=== PATIENT | female | born 1990 | race Caucasian/White ===

== ENCOUNTER → 2017-06-20 | Outpatient (CLI) | payer BC ==
[~2017-06-20] MED LIST: AMPH30CA3 PO; BCPILLS PO; ECHI1CAP PO; MTR/400 PO; MULT-506 PO
== END | disposition home or self-care (01) ==
LOC: C.PAPS 09:39
PROVIDERS: ATTEND Obstetrics & Gynecology
DX: Z01.419 Encounter for gynecological examination (general) (routine) without abnormal findings (principal); R87.610 Atypical squamous cells of undetermined significance on cytologic smear of cervix (ASC-US)

== ENCOUNTER → 2017-11-22 | Outpatient (CLI) | payer OTHER | END | disposition home or self-care (01) | LOC: C.PATHSPEC 14:13 | PROVIDERS: ATTEND Obstetrics & Gynecology | DX: R87.610 Atypical squamous cells of undetermined significance on cytologic smear of cervix (ASC-US) (principal) ==

== ENCOUNTER 2019-04-19 05:20 | Inpatient (IN) ==
--- OUTSIDE RECORDS SUMMARY | 2019-04-19 05:24 | External Medical Summary | Continuity of Care Document ---
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) Low grade squamous intraepithelial lesio n (LGSIL) on cervical Pap smear (795.03) (R87.612) Encounter for routine gynecological exam ination with Papanicolaou smear of cervix (V72.31) (Z01.419) Increased urinary frequency (788.41) (R35.0) Allergies and Adverse Reactions No Known Drug Allergies (Allergy) Medications Multiple Vitamin TABS Refills: 0 Turmeric CAPS Refills: 0 Fish Oil CAPS Refills: 0 Procedures History of myringotomy with tube placement Status: Completed History of dilation and curettage Status : Completed Immunizations Immunizations not documented Social History - Smoking Status Never smoker Plan of Treatment Planned Observations Planned Goals not documented Results No Known Results Results not documented Encounters Appointment; [facility] SC1, Procedure Room 25-Mar-2018 12:10 Encounter Diagnosis: Problem not documented Appointment; Sylvie Andrew M.D. 25-Mar-2018 12:00 Encounter Diagnosis: Problem not documented Appointment; Sylvie Andrew M.D. 22-Nov-2017 10:30 Encounter Diagnosis: Problem not documented Appointment; [facility] [employer] [facility] SC1, Procedure Room 22-Nov-2017 10:30 Encounter Diagnosis: Problem not documented Appointment; Sylvie Andrew M.D. 20-Jun-2017 14:00 Encounter Diagnosis: Problem not documented Appointment; OB SC1, Nursing Station 26-Dec-2018 14:00 Encounter Diagnosis: Problem not documented
[2019-04-19] MEDS ORDERED: OXYTOCIN 30 UNITS/500 ML BAG IV PRN (05:34)
[2019-04-19] MEDS: LACTATED RINGER'S 1,000 ML IV PRN ×3 (05:35→14:02)
[2019-04-19] MEDS ORDERED: BUPIVACAINE 0.25% 30 ML VIAL ONE (06:13)
[2019-04-19] MEDS ORDERED: ePHEDrine sulfate 50 MG/ML AMP ONE (06:13)
[2019-04-19] MEDS ORDERED: fentaNYL citrate 100 MCG/2 ML VIAL ONE ×2 (06:14→16:31)
[2019-04-19 06:15] LABS: Hematocrit (blood only) 36.6 % (37-47); Hemoglobin 12.4 g/dL (12.0-16.0); Mean Corpuscular Hemoglobin 30.7 pg (25-34); Mean Corpuscular Volume 90.6 fL (80-100); RDW Coefficient of Variation 13.7 % (11.5-14.5); RDW Standard Deviation 45.1 fL (36.4-46.3); Red Blood Count 4.04 M/uL (4.2-5.4); White Blood Count 17.32 K/uL (4.8-10.8)
[2019-04-19] MEDS ORDERED: fentaNYL 2MCG/ML ROPIV 1.25MG/ML 100 ML BAG EPI ONE (06:15)
[2019-04-19] MEDS ORDERED: ePHEDrine sulfate 50 MG/ML AMP IV PRN ×2 (06:37→18:43)
[2019-04-19] MEDS ORDERED: fentaNYL 2MCG/ML ROPIV 1.25MG/ML 100 ML BAG EPI PRN (06:37)
[2019-04-19] MEDS ORDERED: NALBUPHINE HCL INJ 10 MG/ML AMP IV PRN ×2 (06:37→18:43)
[2019-04-19] MEDS ORDERED: DiphenhydrAMINE HCL 50 MG/ML VIAL IV PRN ×2 (06:37→18:43)
[2019-04-19] MEDS ORDERED: NALOXONE HCL 1 MG in SODIUM CHLORIDE 0.9% 1000ML 1,000 ML IV PRN ×2 (06:37→18:43)
[2019-04-19] MEDS ORDERED: ONDANSETRON INJ 2 MG/ML 2 ML VIAL IV PRN ×2 (06:37→18:43)
[2019-04-19] MEDS ORDERED: NALOXONE HCL 0.4 MG/1 ML VIAL/CARP IV PRN ×2 (06:37→18:43)
--- NOTE | 2019-04-19 06:39 | Anesthesiology Consultation ---
Date of Service April 19, 2019 Assessment & Plan Chart Review Chart Review: Patient NOT seen in Pre Admission Testing and Acceptable Risk for Labor Epidural Consults Requested none ASA ASA2 Proposed Anesthesia Anesthesia Type: Labor Epidural and CSE Risk / Benefits Reviewed With: PT / POA / Parent / Guardian, Accepts Plan and Informed Consent Obtained History Height/Weight Height: 5 ft 9 in Weight: 99.79 kg Allergies Allergy/AdvReac Type Severity Reaction Status Date / Time No Known Allergies Allergy Verified 04/19/19 05:44 Medications Home Medications Medication Instructions Recorded Confirmed Last Taken AMPHETAMINE-DEXTROAMPHETAMINE 30MG 30 mg PO DAILY PRN #0 cap 08/10/15 Unknown (ADDERALL XR 30MG) Active Medications Generic Name Dose Route Start Last Admin Trade Name Freq PRN Reason Stop Dose Admin Lactated Ringer's 1,000 mls @ 125 mls/hr 04/19/19 05:34 04/19/19 06:38 Lr IV 04/21/19 05:33 125 mls/hr .Q8H PRN Administration L&D Protocol Protocol NPO Date Last Intake of Fluids: 04/19/19 Time Last Intake of Fluids: 01:00 Date Last Intake of Solids: 04/19/19 Time Last Intake of Solids: 05:00 Past Medical History Medical History Back pain PID (acute pelvic inflammatory disease) Exercise / Class Metabolic Activity II 4-5 Yardwork/Stairs/Walk up hill Past Family History Family History Other Family history of diabetes mellitus Past Anesthesia History No Hx of Anesthesia Complications and No Family Hx of Anesthesia Complications History of PONV No Hx of PONV and No Hx of Motion Sickness Social History Smoking Status: Never smoker Do You Dip or Chew Tobacco: No Hx Alcohol Use: No Hx Substance Use: No substance use type: does not use Review of Systems no chest pain or sob Physical Exam Vital Signs Last Vital Signs Temp 36.8 C 04/19/19 05:44 Pulse 127 H 04/19/19 06:37 Resp 20 04/19/19 05:44 BP 150/90 H 04/19/19 05:55 Pulse Ox 97 04/19/19 06:37 ENMT Mouth: no TMJ abnormality Thyromental Distance: > or= 3.5 Finger Breadths Mallampati Class: II Neck normal visual inspection Respiratory normal respiratory effort Auscultation: lungs clear to auscultation bilaterally Cardiovascular Rate/Rhythm: regular rate and regular rhythm Musculoskeletal Spine: normal cervical ROM Neurologic moves all extremities Psychiatric Orientation: alert and oriented x 3 Testing Laboratory Results 04/19/19 05:48 platelets 142
--- NOTE | 2019-04-19 06:39 | Labor Progress Brief Note ---
Date of Service April 19, 2019 Met Pt and family FHR; CAT1 Ctx: 1-2mins VE; /+1 discussed pt's incomplete office medical records with her discussed EFW s per last visit- 04/15/19 Spouse immediately replied the EFW was +/- 2 Pounds Pt's mother tells pt pt was 9;15 when she delivered her and it was her 1st baby I asked [place] about labor progress as home and if they were not concerned with EFW, she shrugged her shoulders ulla, pt's Mother and home ampoule filler and sealer are all present Pt has urge to push. Pushed with ctx for a few minutes. Ctx are intense and so I offered her epidural analgesia and she has agreed Anesthesia is consulted Results & Data Vital Signs (Past 12 Hours) Vital Signs Temp Pulse Resp BP Pulse Ox 04/19/19 06:27 122 H 94 04/19/19 05:55 129 H 150/90 H 04/19/19 05:44 36.8 C 20 04/19/19 05:28 36.8 C
[2019-04-19 06:40] LABS: Mean Corpuscular Hgb Conc 33.9 g/dL (32-36); Mean Platelet Volume 13.6 fL (7.4-10.4); Platelet Count 142 K/uL (130-400); Platelet Estimate Normal (Normal)
[2019-04-19 09:18] LABS: Rubella IgG Antibody Equivocal (Immune)
[2019-04-19 09:19] LABS: Hepatitis B Surface Antigen Neg (Neg)
[2019-04-19 09:47] LABS: Hepatitis C IgG 13Yrs+Old_Rflx Neg (Neg)
--- NOTE | 2019-04-19 11:07 | Labor Progress Brief Note ---
Date of Service April 19, 2019 Pt doing well comfortable and rested after epidural maternal cardiac strip is evaluated by PCU - sinus tach. VE; 10/100/0 station- Unchanged since last exam Bladder is drained Plan start pushing Results & Data Vital Signs (Past 12 Hours) Vital Signs Temp Pulse Resp BP Pulse Ox 04/19/19 10:59 123 H 97 04/19/19 10:54 154 H 96 04/19/19 10:52 115 H 138/81 04/19/19 10:49 119 H 95 04/19/19 10:44 109 H 94 04/19/19 10:42 112 H 94 04/19/19 10:39 131 H 99 04/19/19 10:38 112 H 124/71 04/19/19 10:34 95 H 95 04/19/19 10:29 102 H 96 04/19/19 10:24 109 H 95 04/19/19 10:21 106 H 139/80 04/19/19 10:19 101 H 98 04/19/19 10:14 99 H 96 04/19/19 10:09 98 H 98 04/19/19 10:07 95 H 133/74 04/19/19 10:04 107 H 98 04/19/19 09:59 113 H 97 04/19/19 09:54 118 H 97 04/19/19 09:51 102 H 18 133/69 04/19/19 09:49 108 H 97 04/19/19 09:44 108 H 94 04/19/19 09:39 115 H 95 04/19/19 09:36 120 H 127/80 04/19/19 09:34 123 H 96 04/19/19 09:29 109 H 95 04/19/19 09:24 112 H 95 04/19/19 09:21 107 H 131/76 04/19/19 09:19 120 H 96 04/19/19 09:14 117 H 96 04/19/19 09:09 124 H 98 04/19/19 09:07 36.8 C 118 H 20 128/73 04/19/19 09:04 120 H 98 04/19/19 08:59 122 H 98 04/19/19 08:54 115 H 97 04/19/19 08:53 117 H 94 04/19/19 08:51 118 H 132/80 04/19/19 08:48 122 H 96 04/19/19 08:43 134 H 94 04/19/19 08:38 125 H 95 04/19/19 08:37 122 H 132/81 04/19/19 08:35 126 H 92 04/19/19 08:33 127 H 98 04/19/19 08:28 122 H 98 04/19/19 08:23 124 H 97 04/19/19 08:22 133 H 142/67 H 93 04/19/19 08:18 129 H 97 04/19/19 08:13 113 H 94 04/19/19 08:11 117 H 94 04/19/19 08:08 122 H 96 04/19/19 08:07 113 H 110/58 L 04/19/19 08:03 114 H 93 04/19/19 07:58 119 H 94 04/19/19 07:53 117 H 94 04/19/19 07:51 118 H 117/60 04/19/19 07:48 113 H 96 04/19/19 07:42 122 H 96 04/19/19 07:37 130 H 96 04/19/19 07:36 122 H 128/72 04/19/19 07:32 122 H 98 04/19/19 07:27 127 H 99 04/19/19 07:22 134 H 95 04/19/19 07:21 125 H 131/70 04/19/19 07:18 122 H 94 04/19/19 07:17 130 H 97 04/19/19 07:12 129 H 95 04/19/19 07:10 138 H 94 04/19/19 07:07 138 H 98 04/19/19 07:06 130 H 137/72 04/19/19 07:04 142 H 133/63 89 L 04/19/19 07:02 133 H 125/64 94 04/19/19 07:00 37.0 C 122 H 20 126/70 04/19/19 06:57 118 H 99 04/19/19 06:56 127 H 138/71 04/19/19 06:52 123 H 147/78 H 96 04/19/19 06:51 129 H 143/84 H 04/19/19 06:47 130 H 99 04/19/19 06:46 120 H 145/98 H 04/19/19 06:42 124 H 94 04/19/19 06:37 127 H 97 04/19/19 06:32 125 H 95 04/19/19 06:27 122 H 94 04/19/19 05:55 129 H 150/90 H 04/19/19 05:44 36.8 C 20 04/19/19 05:28 36.8 C
--- NOTE | 2019-04-19 14:12 | Labor Progress Brief Note ---
Date of Service April 19, 2019 Pt requesting to rest Nurse and I have had extensive discussion with pt and spouse There has been no change in station, she is still +1 and her contraction frequency and intensity is decrease. We have offered her Pitocin augmentation and she and her spouse had refused VE; 10100+1 I continue to express my concern with pt and spouse that baby may be large and that if her chance of a vaginal delivery may be improved with Pitocin augmentation she continue to inform me her mother had a 9.15 baby. Pt and spouse will discuss our recommendation and let us know Results & Data Vital Signs (Past 12 Hours) Vital Signs Temp Pulse Resp BP Pulse Ox 04/19/19 14:02 107 H 94 04/19/19 14:00 108 H 94 04/19/19 13:56 109 H 91 04/19/19 13:55 108 H 91 04/19/19 13:50 113 H 93 04/19/19 13:49 107 H 94 04/19/19 13:44 109 H 94 04/19/19 13:39 114 H 94 04/19/19 13:37 104 H 89 L 04/19/19 13:34 104 H 92 04/19/19 13:29 115 H 94 04/19/19 13:24 110 H 95 04/19/19 13:21 129 H 123/74 04/19/19 13:19 131 H 93 04/19/19 13:18 117 H 93 04/19/19 13:14 118 H 95 04/19/19 13:09 137 H 95 04/19/19 13:04 99 H 92 04/19/19 13:02 112 H 94 04/19/19 12:59 135 H 99 04/19/19 12:54 110 H 93 04/19/19 12:50 110 H 94 04/19/19 12:49 138 H 99 04/19/19 12:44 107 H 92 04/19/19 12:39 136 H 95 04/19/19 12:34 112 H 94 04/19/19 12:29 112 H 92 04/19/19 12:28 110 H 92 04/19/19 12:24 111 H 94 04/19/19 12:23 121 H 136/91 04/19/19 12:22 111 H 94 04/19/19 12:19 126 H 96 04/19/19 12:14 112 H 96 09/29/19 12:12 116 H 93 04/19/19 12:09 119 H 94 04/19/19 12:07 112 H 126/65 04/19/19 12:04 107 H 94 04/19/19 11:59 111 H 95 04/19/19 11:57 126 H 94 04/19/19 11:54 124 H 95 04/19/19 11:52 134 H 140/68 04/19/19 11:49 146 H 95 04/19/19 11:44 138 H 95 04/19/19 11:39 139 H 97 04/19/19 11:37 126 H 132/65 04/19/19 11:34 128 H 97 04/19/19 11:30 37.0 C 20 04/19/19 11:29 130 H 96 04/19/19 11:24 141 H 99 04/19/19 11:21 131 H 180/73 H 04/19/19 11:19 139 H 98 04/19/19 11:17 125 H 92 04/19/19 11:14 143 H 97 04/19/19 11:09 134 H 98 04/19/19 11:04 124 H 96 04/19/19 10:59 123 H 97 04/19/19 10:54 154 H 96 04/19/19 10:52 115 H 138/81 04/19/19 10:49 119 H 95 04/19/19 10:44 109 H 94 04/19/19 10:42 112 H 94 04/19/19 10:39 131 H 99 04/19/19 10:38 112 H 124/71 04/19/19 10:34 95 H 95 04/19/19 10:29 102 H 96 04/19/19 10:24 109 H 95 04/19/19 10:21 106 H 139/80 04/19/19 10:19 101 H 98 04/19/19 10:14 99 H 96 04/19/19 10:09 98 H 98 04/19/19 10:07 95 H 133/74 04/19/19 10:04 107 H 98 04/19/19 09:59 113 H 97 04/19/19 09:54 118 H 97 04/19/19 09:51 102 H 18 133/69 04/19/19 09:49 108 H 97 04/19/19 09:44 108 H 94 04/19/19 09:39 115 H 95 04/19/19 09:36 120 H 127/80 04/19/19 09:34 123 H 96 04/19/19 09:29 109 H 95 04/19/19 09:24 112 H 95 04/19/19 09:21 107 H 131/76 04/19/19 09:19 120 H 96 04/19/19 09:14 117 H 96 04/19/19 09:09 124 H 98 04/19/19 09:07 36.8 C 118 H 20 128/73 04/19/19 09:04 120 H 98 04/19/19 08:59 122 H 98 04/19/19 08:54 115 H 97 04/19/19 08:53 117 H 94 04/19/19 08:51 118 H 132/80 04/19/19 08:48 122 H 96 04/19/19 08:43 134 H 94 04/19/19 08:38 125 H 95 04/19/19 08:37 122 H 132/81 04/19/19 08:35 126 H 92 04/19/19 08:33 127 H 98 04/19/19 08:28 122 H 98 04/19/19 08:23 124 H 97 04/19/19 08:22 133 H 142/67 H 93 04/19/19 08:18 129 H 97 04/19/19 08:13 113 H 94 04/19/19 08:11 117 H 94 04/19/19 08:08 122 H 96 04/19/19 08:07 113 H 110/58 L 04/19/19 08:03 114 H 93 04/19/19 07:58 119 H 94 04/19/19 07:53 117 H 94 04/19/19 07:51 118 H 117/60 04/19/19 07:48 113 H 96 04/19/19 07:42 122 H 96 04/19/19 07:37 130 H 96 04/19/19 07:36 122 H 128/72 04/19/19 07:32 122 H 98 04/19/19 07:27 127 H 99 04/19/19 07:22 134 H 95 04/19/19 07:21 125 H 131/70 04/19/19 07:18 122 H 94 04/19/19 07:17 130 H 97 04/19/19 07:12 129 H 95 04/19/19 07:10 138 H 94 04/19/19 07:07 138 H 98 04/19/19 07:06 130 H 137/72 04/19/19 07:04 142 H 133/63 89 L 04/19/19 07:02 133 H 125/64 94 04/19/19 07:00 37.0 C 122 H 20 126/70 04/19/19 06:57 118 H 99 04/19/19 06:56 127 H 138/71 04/19/19 06:52 123 H 147/78 H 96 04/19/19 06:51 129 H 143/84 H 04/19/19 06:47 130 H 99 04/19/19 06:46 120 H 145/98 H 04/19/19 06:42 124 H 94 04/19/19 06:37 127 H 97 04/19/19 06:32 125 H 95 04/19/19 06:27 122 H 94 04/19/19 05:55 129 H 150/90 H 04/19/19 05:44 36.8 C 20 04/19/19 05:28 36.8 C
--- NOTE | 2019-04-19 14:31 | Labor Progress Brief Note ---
Date of Service April 19, 2019 Addendum to Previous Note We also discussed the presence of meconium and the fact that she was SROM since she presently has no abdominal tenderness, is afebrile and no foul disch . Results & Data Vital Signs (Past 12 Hours) Vital Signs Temp Pulse Resp BP Pulse Ox 04/19/19 14:26 105 H 93 04/19/19 14:25 120 H 89 L 04/19/19 14:21 89 134/77 04/19/19 14:20 95 H 90 04/19/19 14:16 94 H 93 04/19/19 14:15 105 H 94 04/19/19 14:10 108 H 94 04/19/19 14:08 102 H 134/76 04/19/19 14:05 106 H 92 04/19/19 14:02 107 H 94 04/19/19 14:00 108 H 94 04/19/19 13:56 109 H 91 04/19/19 13:55 108 H 91 04/19/19 13:50 113 H 93 04/19/19 13:49 107 H 94 04/19/19 13:44 109 H 94 04/19/19 13:39 114 H 94 04/19/19 13:37 104 H 89 L 04/19/19 13:34 104 H 92 04/19/19 13:29 115 H 94 04/19/19 13:24 110 H 95 04/19/19 13:21 129 H 123/74 04/19/19 13:19 131 H 93 04/19/19 13:18 117 H 93 04/19/19 13:14 118 H 95 04/19/19 13:09 137 H 95 04/19/19 13:04 99 H 92 04/19/19 13:02 112 H 94 04/19/19 12:59 135 H 99 04/19/19 12:54 110 H 93 04/19/19 12:50 110 H 94 04/19/19 12:49 138 H 99 04/19/19 12:44 107 H 92 04/19/19 12:39 136 H 95 04/19/19 12:34 112 H 94 04/19/19 12:29 112 H 92 04/19/19 12:28 110 H 92 04/19/19 12:24 111 H 94 04/19/19 12:23 121 H 136/91 04/19/19 12:22 111 H 94 04/19/19 12:19 126 H 96 04/19/19 12:14 112 H 96 04/19/19 12:12 116 H 93 04/19/19 12:09 119 H 94 04/19/19 12:07 112 H 126/65 04/19/19 12:04 107 H 94 04/19/19 11:59 111 H 95 04/19/19 11:57 126 H 94 04/19/19 11:54 124 H 95 04/19/19 11:52 134 H 140/68 04/19/19 11:49 146 H 95 04/19/19 11:44 138 H 95 04/19/19 11:39 139 H 97 04/19/19 11:37 126 H 132/65 04/19/19 11:34 128 H 97 04/19/19 11:30 37.0 C 20 04/19/19 11:29 130 H 96 04/19/19 11:24 141 H 99 04/19/19 11:21 131 H 180/73 H 04/19/19 11:19 139 H 98 04/19/19 11:17 125 H 92 04/19/19 11:14 143 H 97 04/19/19 11:09 134 H 98 04/19/19 11:04 124 H 96 04/19/19 10:59 123 H 97 04/19/19 10:54 154 H 96 04/19/19 10:52 115 H 138/81 04/19/19 10:49 119 H 95 04/19/19 10:44 109 H 94 04/19/19 10:42 112 H 94 04/19/19 10:39 131 H 99 04/19/19 10:38 112 H 124/71 04/19/19 10:34 95 H 95 04/19/19 10:29 102 H 96 04/19/19 10:24 109 H 95 04/19/19 10:21 106 H 139/80 04/19/19 10:19 101 H 98 04/19/19 10:14 99 H 96 04/19/19 10:09 98 H 98 04/19/19 10:07 95 H 133/74 04/19/19 10:04 107 H 98 04/19/19 09:59 113 H 97 04/19/19 09:54 118 H 97 04/19/19 09:51 102 H 18 133/69 04/19/19 09:49 108 H 97 04/19/19 09:44 108 H 94 04/19/19 09:39 115 H 95 04/19/19 09:36 120 H 127/80 04/19/19 09:34 123 H 96 04/19/19 09:29 109 H 95 04/19/19 09:24 112 H 95 04/19/19 09:21 107 H 131/76 04/19/19 09:19 120 H 96 04/19/19 09:14 117 H 96 04/19/19 09:09 124 H 98 04/19/19 09:07 36.8 C 118 H 20 128/73 04/19/19 09:04 120 H 98 04/19/19 08:59 122 H 98 04/19/19 08:54 115 H 97 04/19/19 08:53 117 H 94 04/19/19 08:51 118 H 132/80 04/19/19 08:48 122 H 96 04/19/19 08:43 134 H 94 04/19/19 08:38 125 H 95 04/19/19 08:37 122 H 132/81 04/19/19 08:35 126 H 92 04/19/19 08:33 127 H 98 04/19/19 08:28 122 H 98 04/19/19 08:23 124 H 97 04/19/19 08:22 133 H 142/67 H 93 04/19/19 08:18 129 H 97 04/19/19 08:13 113 H 94 04/19/19 08:11 117 H 94 04/19/19 08:08 122 H 96 04/19/19 08:07 113 H 110/58 L 04/19/19 08:03 114 H 93 04/19/19 07:58 119 H 94 04/19/19 07:53 117 H 94 04/19/19 07:51 118 H 117/60 04/19/19 07:48 113 H 96 04/19/19 07:42 122 H 96 04/19/19 07:37 130 H 96 04/19/19 07:36 122 H 128/72 04/19/19 07:32 122 H 98 04/19/19 07:27 127 H 99 04/19/19 07:22 134 H 95 04/19/19 07:21 125 H 131/70 04/19/19 07:18 122 H 94 04/19/19 07:17 130 H 97 04/19/19 07:12 129 H 95 04/19/19 07:10 138 H 94 04/19/19 07:07 138 H 98 04/19/19 07:06 130 H 137/72 04/19/19 07:04 142 H 133/63 89 L 04/19/19 07:02 133 H 125/64 94 04/19/19 07:00 37.0 C 122 H 20 126/70 04/19/19 06:57 118 H 99 04/19/19 06:56 127 H 138/71 04/19/19 06:52 123 H 147/78 H 96 04/19/19 06:51 129 H 143/84 H 04/19/19 06:47 130 H 99 04/19/19 06:46 120 H 145/98 H 04/19/19 06:42 124 H 94 04/19/19 06:37 127 H 97 04/19/19 06:32 125 H 95 04/19/19 06:27 122 H 94 04/19/19 05:55 129 H 150/90 H 04/19/19 05:44 36.8 C 20 04/19/19 05:28 36.8 C
--- NOTE | 2019-04-19 16:06 | Labor Progress Brief Note ---
Date of Service April 19, 2019 Pt doing well Ve; 10/100/+1 Exam unchanged discussed exam with pt and spouse discussed risk of shoulder dystocia, brachial plexus injury and neurological damage Nurse, spouse and pt's sweater operator has affirmed my concerns I have recommended c/sec to pt she wants to think about it Results & Data Vital Signs (Past 12 Hours) Vital Signs Temp Pulse Resp BP Pulse Ox 04/19/19 15:57 130 H 94 04/19/19 15:56 118 H 92 04/19/19 15:52 112 H 91 04/19/19 15:49 160 H 94 04/19/19 15:47 146 H 97 04/19/19 15:44 119 H 93 04/19/19 15:42 127 H 83 L 04/19/19 15:38 131 H 126/91 89 L 04/19/19 15:37 138 H 96 04/19/19 15:32 147 H 94 04/19/19 15:27 130 H 96 04/19/19 15:22 129 H 131/76 04/19/19 15:16 115 H 94 04/19/19 15:10 119 H 93 04/19/19 15:06 37.0 C 100 H 20 137/76 04/19/19 15:05 124 H 96 04/19/19 15:00 96 H 94 04/19/19 14:59 105 H 93 04/19/19 14:55 36.7 C 104 H 20 95 04/19/19 14:51 108 H 142/85 H 04/19/19 14:50 115 H 95 04/19/19 14:45 110 H 96 04/19/19 14:42 111 H 94 04/19/19 14:40 106 H 91 04/19/19 14:36 104 H 123/65 04/19/19 14:35 107 H 89 L 04/19/19 14:30 106 H 89 L 04/19/19 14:26 105 H 93 04/19/19 14:25 120 H 89 L 04/19/19 14:21 89 134/77 04/19/19 14:20 95 H 90 04/19/19 14:16 94 H 93 04/19/19 14:15 105 H 94 04/19/19 14:10 108 H 94 04/19/19 14:08 102 H 134/76 04/19/19 14:05 106 H 92 04/19/19 14:02 107 H 94 04/19/19 14:00 108 H 94 04/19/19 13:56 109 H 91 04/19/19 13:55 108 H 91 04/19/19 13:50 113 H 93 04/19/19 13:49 107 H 94 04/19/19 13:44 109 H 94 04/19/19 13:39 114 H 94 04/19/19 13:37 104 H 89 L 04/19/19 13:34 104 H 92 04/19/19 13:29 115 H 94 04/19/19 13:24 110 H 95 04/19/19 13:21 129 H 123/74 04/19/19 13:19 131 H 93 04/19/19 13:18 117 H 93 04/19/19 13:14 118 H 95 04/19/19 13:09 137 H 95 04/19/19 13:04 99 H 92 04/19/19 13:02 112 H 94 04/19/19 12:59 135 H 99 04/19/19 12:54 110 H 93 04/19/19 12:50 110 H 94 04/19/19 12:49 138 H 99 04/19/19 12:44 107 H 92 04/19/19 12:39 136 H 95 04/19/19 12:34 112 H 94 04/19/19 12:29 112 H 92 04/19/19 12:28 110 H 92 04/19/19 12:24 111 H 94 04/19/19 12:23 121 H 136/91 04/19/19 12:22 111 H 94 04/19/19 12:19 126 H 96 04/19/19 12:14 112 H 96 04/19/19 12:12 116 H 93 04/19/19 12:09 119 H 94 04/19/19 12:07 112 H 126/65 04/19/19 12:04 107 H 94 04/19/19 11:59 111 H 95 04/19/19 11:57 126 H 94 04/19/19 11:54 124 H 95 04/19/19 11:52 134 H 140/68 04/19/19 11:49 146 H 95 04/19/19 11:44 138 H 95 04/19/19 11:39 139 H 97 04/19/19 11:37 126 H 132/65 04/19/19 11:34 128 H 97 04/19/19 11:30 37.0 C 20 04/19/19 11:29 130 H 96 04/19/19 11:24 141 H 99 04/19/19 11:21 131 H 180/73 H 04/19/19 11:19 139 H 98 04/19/19 11:17 125 H 92 04/19/19 11:14 143 H 97 04/19/19 11:09 134 H 98 04/19/19 11:04 124 H 96 04/19/19 10:59 123 H 97 04/19/19 10:54 154 H 96 04/19/19 10:52 115 H 138/81 04/19/19 10:49 119 H 95 04/19/19 10:44 109 H 94 04/19/19 10:42 112 H 94 04/19/19 10:39 131 H 99 04/19/19 10:38 112 H 124/71 04/19/19 10:34 95 H 95 04/19/19 10:29 102 H 96 04/19/19 10:24 109 H 95 04/19/19 10:21 106 H 139/80 04/19/19 10:19 101 H 98 04/19/19 10:14 99 H 96 04/19/19 10:09 98 H 98 04/19/19 10:07 95 H 133/74 04/19/19 10:04 107 H 98 04/19/19 09:59 113 H 97 04/19/19 09:54 118 H 97 04/19/19 09:51 102 H 18 133/69 04/19/19 09:49 108 H 97 04/19/19 09:44 108 H 94 04/19/19 09:39 115 H 95 04/19/19 09:36 120 H 127/80 04/19/19 09:34 123 H 96 04/19/19 09:29 109 H 95 04/19/19 09:24 112 H 95 04/19/19 09:21 107 H 131/76 04/19/19 09:19 120 H 96 04/19/19 09:14 117 H 96 04/19/19 09:09 124 H 98 04/19/19 09:07 36.8 C 118 H 20 128/73 09/29/19 09:04 120 H 98 04/19/19 08:59 122 H 98 04/19/19 08:54 115 H 97 04/19/19 08:53 117 H 94 04/19/19 08:51 118 H 132/80 04/19/19 08:48 122 H 96 04/19/19 08:43 134 H 94 04/19/19 08:38 125 H 95 04/19/19 08:37 122 H 132/81 04/19/19 08:35 126 H 92 04/19/19 08:33 127 H 98 04/19/19 08:28 122 H 98 04/19/19 08:23 124 H 97 04/19/19 08:22 133 H 142/67 H 93 04/19/19 08:18 129 H 97 04/19/19 08:13 113 H 94 04/19/19 08:11 117 H 94 04/19/19 08:08 122 H 96 04/19/19 08:07 113 H 110/58 L 04/19/19 08:03 114 H 93 04/19/19 07:58 119 H 94 04/19/19 07:53 117 H 94 04/19/19 07:51 118 H 117/60 04/19/19 07:48 113 H 96 04/19/19 07:42 122 H 96 04/19/19 07:37 130 H 96 04/19/19 07:36 122 H 128/72 04/19/19 07:32 122 H 98 04/19/19 07:27 127 H 99 04/19/19 07:22 134 H 95 04/19/19 07:21 125 H 131/70 04/19/19 07:18 122 H 94 04/19/19 07:17 130 H 97 04/19/19 07:12 129 H 95 04/19/19 07:10 138 H 94 04/19/19 07:07 138 H 98 04/19/19 07:06 130 H 137/72 04/19/19 07:04 142 H 133/63 89 L 04/19/19 07:02 133 H 125/64 94 04/19/19 07:00 37.0 C 122 H 20 126/70 04/19/19 06:57 118 H 99 04/19/19 06:56 127 H 138/71 04/19/19 06:52 123 H 147/78 H 96 04/19/19 06:51 129 H 143/84 H 04/19/19 06:47 130 H 99 04/19/19 06:46 120 H 145/98 H 04/19/19 06:42 124 H 94 04/19/19 06:37 127 H 97 04/19/19 06:32 125 H 95 04/19/19 06:27 122 H 94 04/19/19 05:55 129 H 150/90 H 04/19/19 05:44 36.8 C 20 04/19/19 05:28 36.8 C
[2019-04-19] MEDS ORDERED: LACTATED RINGER'S 1,000 ML IV SCH ×3 (16:30→18:30)
[2019-04-19] MEDS ORDERED: CITRIC ACID/SODIUM CITRATE 15 ML UDC PO SCH (16:45)
[2019-04-19] MEDS ORDERED: CEFAZOLIN 2000MG 2,000 MG/15 ML SYR IV SCH (16:45)
[2019-04-19] MEDS ORDERED: miSOPROStoL 200 MCG TAB ONE (17:06)
[2019-04-19 17:18] LABS: Albumin Level 2.6 gm/dl (3.4-5.0); BUN Creatinine Ratio 8.6 (10-20); Calcium 8.8 mg/dl (8.5-10.1); Est GFR (African American) 126.9; Est GFR (Non-African American) 109.5; Potassium 3.9 mmol/L (3.5-5.1)
[2019-04-19 17:20] LABS: Albumin Globulin Ratio 0.6 (0.9-2); Bilirubin,Total 1.4 mg/dl (0.2-1); Globulin 4.1 gm/dl (2.5-4.0); Total Protein 6.7 gm/dl (6.4-8.2)
[2019-04-19 17:32] LABS: Eosinophils # (auto) 0.01 K/uL (0-0.5); Eosinophils % (auto) 0.1 %; Hematocrit (blood only) 34.9 % (37-47); Hemoglobin 11.7 g/dL (12.0-16.0); Immature Granulocytes # (auto) 0.04 K/uL (0.00-0.02); Immature Granulocytes % (auto) 0.3 %; Lymphocytes # (auto) 1.21 K/uL (1.2-3.4); Lymphocytes % (auto) 8.1 %; Mean Corpuscular Hemoglobin 30.4 pg (25-34); Mean Corpuscular Hgb Conc 33.5 g/dL (32-36); Mean Corpuscular Volume 90.6 fL (80-100); Monocytes # (auto) 1.11 K/uL (0.11-0.59); Monocytes % (auto) 7.5 %; Neutrophils # (auto) 12.49 K/uL (1.4-6.5); Platelet Count 126 K/uL (130-400); Platelet Estimate Normal (Normal); RDW Standard Deviation 45.9 fL (36.4-46.3); Red Blood Count 3.85 M/uL (4.2-5.4); White Blood Count 14.86 K/uL (4.8-10.8)
[2019-04-19] MEDS ORDERED: MoRPHine SULFATE PF 1 MG/ML 10 ML AMP/VIAL ONE (17:35)
[2019-04-19] MEDS ORDERED: LIDOCAINE/EPINEPHRINE 2% 1:200,000 20 ML SDV ONE (17:35)
[2019-04-19 18:06] LABS: Base Excess Cord Arterial Bld -1.3 mEq/L (-9-1.8); CO2 Cord Arterial Blood 61 mmHg (39.1-73.5); HCO3 Cord Arterial Blood 27 mmol/L (19.7-28.5); PO2 Cord Arterial Blood 12.5 % (4.1-31.7); pH Cord Arterial Blood 7.27 (7.1-7.38)
[2019-04-19] MEDS ORDERED: ONDANSETRON INJ 2 MG/ML 2 ML VIAL ONE (18:06)
[2019-04-19] MEDS ORDERED: OXYTOCIN 10 UNITS/ML VIAL ONE (18:06)
[2019-04-19] MEDS ORDERED: PHENYLEPHRINE HCL 10 MG/ML VIAL ONE (18:07)
[2019-04-19] MEDS ORDERED: METHYLERGONOVINE MALEATE 0.2 MG/ML AMP ONE (18:07)
[2019-04-19 18:10] LABS: Oxygen Sat Cord Arterial Blood < 60.0 % (<60)
[2019-04-19 18:12] LABS: Base Excess Cord Venous Blood -0.7 mEq/L (-7.7-1.9); Cord Venous Blood HCO3 25 mmol/L (18.4-26.8); Cord Venous Blood PCO2 45 mmHg (30.4-57.2); Cord Venous Blood PO2 26 mmHg (14.1-43.3); Cord Venous Blood pH 7.36 (7.20-7.44)
[2019-04-19] MEDS ORDERED: SENNA 8.6 MG TAB PO PRN (18:22)
[2019-04-19] MEDS ORDERED: BENZOCAINE 20% AER SPR 82.5 GM CAN EXT PRN (18:22)
[2019-04-19] MEDS ORDERED: SUPERCREAM 0.870% 15 GM JAR EXT PRN (18:22)
[2019-04-19] MEDS ORDERED: MAGNESIUM HYDROXIDE SUSP 30 ML UDC PO PRN (18:22)
[2019-04-19] MEDS ORDERED: DIPHTHERIA/TETANUS/PERTUSSIS 0.5 ML SYR/VIAL IM ONE (18:22)
[2019-04-19] MEDS ORDERED: HYDROCORTISONE ACETATE 25 MG SUPP PR PRN (18:22)
[2019-04-19] MEDS ORDERED: NALOXONE HCL 0.08 MG in SYRINGE 1.8 ML IV PRN (18:43)
[2019-04-19] MEDS ORDERED: MoRPHine SULFATE PF 1 MG/ML 10 ML AMP/VIAL EPI ONE (18:43)
[2019-04-19] MEDS ORDERED: HYDROmorphone INJ 0.5 MG/0.5 ML SYR IV PRN (18:43)
[2019-04-19] MEDS ORDERED: LACTATED RINGER'S 500 ML IV PRN (18:43)
[2019-04-19] MEDS ORDERED: SODIUM CHLORIDE 0.9% 1000ML 1,000 ML IV SCH (18:45)
[2019-04-19] MEDS ORDERED: NO NARCOTICS OR SEDATIVES SCH (18:45)
[2019-04-19] MEDS ORDERED: DC INTRASPINAL MORPHINE SCH (18:45)
--- NOTE | 2019-04-19 19:13 | Anesthesiology Progress Note ---
Date of Service April 19, 2019 Anesthesia Post Procedure Vital Signs Vital Signs: Temp Pulse Resp BP Pulse Ox 04/19/19 19:09 98 H 100 04/19/19 19:04 104 H 100 04/19/19 18:59 97 H 99 04/19/19 18:55 107 H 174/80 H 04/19/19 18:54 97 H 97 04/19/19 18:52 95 H 153/60 H 04/19/19 18:49 91 H 100 04/19/19 18:47 90 172/135 H 04/19/19 18:44 96 H 100 04/19/19 18:39 92 H 98 04/19/19 18:35 94 H 109/60 04/19/19 18:34 96 H 98 04/19/19 18:29 94 H 98 04/19/19 18:26 37.2 C 93 H 20 105/56 L 100 04/19/19 18:25 37.2 C 18 04/19/19 18:23 95 H 98 04/19/19 16:53 116 H 93 04/19/19 16:51 107 H 127/76 04/19/19 16:49 106 H 130/75 94 04/19/19 16:48 107 H 132/76 94 04/19/19 16:46 109 H 139/86 04/19/19 16:44 122 H 95 04/19/19 16:41 106 H 93 04/19/19 16:39 114 H 96 04/19/19 16:34 121 H 96 04/19/19 16:29 120 H 93 04/19/19 16:23 118 H 93 04/19/19 16:22 114 H 91 04/19/19 16:17 126 H 92 04/19/19 16:14 117 H 94 04/19/19 16:12 113 H 161/74 H 93 04/19/19 16:09 120 H 94 04/19/19 16:07 119 H 95 04/19/19 16:06 120 H 165/104 H 04/19/19 16:03 122 H 94 04/19/19 16:02 113 H 95 04/19/19 15:57 130 H 94 04/19/19 15:56 118 H 92 04/19/19 15:52 112 H 91 04/19/19 15:49 160 H 94 04/19/19 15:47 146 H 97 04/19/19 15:44 119 H 93 04/19/19 15:42 127 H 83 L 04/19/19 15:38 131 H 126/91 89 L 04/19/19 15:37 138 H 96 04/19/19 15:32 147 H 94 04/19/19 15:27 130 H 96 04/19/19 15:22 129 H 131/76 04/19/19 15:16 115 H 94 04/19/19 15:10 119 H 93 04/19/19 15:06 37.0 C 100 H 20 137/76 04/19/19 15:05 124 H 96 04/19/19 15:00 96 H 94 04/19/19 14:59 105 H 93 04/19/19 14:55 36.7 C 104 H 20 95 04/19/19 14:51 108 H 142/85 H 04/19/19 14:50 115 H 95 04/19/19 14:45 110 H 96 04/19/19 14:42 111 H 94 04/19/19 14:40 106 H 91 04/19/19 14:36 104 H 123/65 04/19/19 14:35 107 H 89 L 04/19/19 14:30 106 H 89 L 04/19/19 14:26 105 H 93 04/19/19 14:25 120 H 89 L 04/19/19 14:21 89 134/77 04/19/19 14:20 95 H 90 04/19/19 14:16 94 H 93 04/19/19 14:15 105 H 94 04/19/19 14:10 108 H 94 04/19/19 14:08 102 H 134/76 04/19/19 14:05 106 H 92 04/19/19 14:02 107 H 94 04/19/19 14:00 108 H 94 04/19/19 13:56 109 H 91 04/19/19 13:55 108 H 91 04/19/19 13:50 113 H 93 04/19/19 13:49 107 H 94 04/19/19 13:44 109 H 94 04/19/19 13:39 114 H 94 04/19/19 13:37 104 H 89 L 04/19/19 13:34 104 H 92 04/19/19 13:29 115 H 94 04/19/19 13:24 110 H 95 04/19/19 13:21 129 H 123/74 04/19/19 13:19 131 H 93 04/19/19 13:18 117 H 93 04/19/19 13:14 118 H 95 04/19/19 13:09 137 H 95 04/19/19 13:04 99 H 92 04/19/19 13:02 112 H 94 04/19/19 12:59 135 H 99 04/19/19 12:54 110 H 93 04/19/19 12:50 110 H 94 04/19/19 12:49 138 H 99 04/19/19 12:44 107 H 92 04/19/19 12:39 136 H 95 04/19/19 12:34 112 H 94 04/19/19 12:29 112 H 92 04/19/19 12:28 110 H 92 04/19/19 12:24 111 H 94 04/19/19 12:23 121 H 136/91 04/19/19 12:22 111 H 94 04/19/19 12:19 126 H 96 04/19/19 12:14 112 H 96 04/19/19 12:12 116 H 93 04/19/19 12:09 119 H 94 04/19/19 12:07 112 H 126/65 04/19/19 12:04 107 H 94 04/19/19 11:59 111 H 95 04/19/19 11:57 126 H 94 04/19/19 11:54 124 H 95 04/19/19 11:52 134 H 140/68 04/19/19 11:49 146 H 95 04/19/19 11:44 138 H 95 04/19/19 11:39 139 H 97 04/19/19 11:37 126 H 132/65 04/19/19 11:34 128 H 97 04/19/19 11:30 37.0 C 20 04/19/19 11:29 130 H 96 04/19/19 11:24 141 H 99 04/19/19 11:21 131 H 180/73 H 04/19/19 11:19 139 H 98 04/19/19 11:17 125 H 92 04/19/19 11:14 143 H 97 04/19/19 11:09 134 H 98 04/19/19 11:04 124 H 96 04/19/19 10:59 123 H 97 04/19/19 10:54 154 H 96 04/19/19 10:52 115 H 138/81 04/19/19 10:49 119 H 95 04/19/19 10:44 109 H 94 04/19/19 10:42 112 H 94 04/19/19 10:39 131 H 99 04/19/19 10:38 112 H 124/71 04/19/19 10:34 95 H 95 04/19/19 10:29 102 H 96 04/19/19 10:24 109 H 95 04/19/19 10:21 106 H 139/80 04/19/19 10:19 101 H 98 04/19/19 10:14 99 H 96 04/19/19 10:09 98 H 98 04/19/19 10:07 95 H 133/74 04/19/19 10:04 107 H 98 04/19/19 09:59 113 H 97 04/19/19 09:54 118 H 97 04/19/19 09:51 102 H 18 133/69 04/19/19 09:49 108 H 97 04/19/19 09:44 108 H 94 04/19/19 09:39 115 H 95 04/19/19 09:36 120 H 127/80 04/19/19 09:34 123 H 96 04/19/19 09:29 109 H 95 04/19/19 09:24 112 H 95 04/19/19 09:21 107 H 131/76 04/19/19 09:19 120 H 96 04/19/19 09:14 117 H 96 04/19/19 09:09 124 H 98 04/19/19 09:07 36.8 C 118 H 20 128/73 04/19/19 09:04 120 H 98 04/19/19 08:59 122 H 98 04/19/19 08:54 115 H 97 04/19/19 08:53 117 H 94 04/19/19 08:51 118 H 132/80 04/19/19 08:48 122 H 96 04/19/19 08:43 134 H 94 04/19/19 08:38 125 H 95 04/19/19 08:37 122 H 132/81 04/19/19 08:35 126 H 92 04/19/19 08:33 127 H 98 04/19/19 08:28 122 H 98 04/19/19 08:23 124 H 97 04/19/19 08:22 133 H 142/67 H 93 04/19/19 08:18 129 H 97 04/19/19 08:13 113 H 94 04/19/19 08:11 117 H 94 04/19/19 08:08 122 H 96 04/19/19 08:07 113 H 110/58 L 04/19/19 08:03 114 H 93 04/19/19 07:58 119 H 94 04/19/19 07:53 117 H 94 04/19/19 07:51 118 H 117/60 04/19/19 07:48 113 H 96 04/19/19 07:42 122 H 96 04/19/19 07:37 130 H 96 04/19/19 07:36 122 H 128/72 04/19/19 07:32 122 H 98 04/19/19 07:27 127 H 99 04/19/19 07:22 134 H 95 04/19/19 07:21 125 H 131/70 04/19/19 07:18 122 H 94 04/19/19 07:17 130 H 97 04/19/19 07:12 129 H 95 04/19/19 07:10 138 H 94 04/19/19 07:07 138 H 98 04/19/19 07:06 130 H 137/72 04/19/19 07:04 142 H 133/63 89 L 04/19/19 07:02 133 H 125/64 94 04/19/19 07:00 37.0 C 122 H 20 126/70 04/19/19 06:57 118 H 99 04/19/19 06:56 127 H 138/71 04/19/19 06:52 123 H 147/78 H 96 04/19/19 06:51 129 H 143/84 H 04/19/19 06:47 130 H 99 04/19/19 06:46 120 H 145/98 H 04/19/19 06:42 124 H 94 04/19/19 06:37 127 H 97 04/19/19 06:32 125 H 95 04/19/19 06:27 122 H 94 04/19/19 05:55 129 H 150/90 H 04/19/19 05:44 36.8 C 20 04/19/19 05:28 36.8 C Pain Intensity Bilateral Anterior Abdomen: Pain Intensity: 5 Transfer of Care Handoff Completed per policy Notes Mental Status: alert / awake / arousable and participated in evaluation Patient Amnestic to Procedure: Yes Nausea / Vomiting: adequately controlled Pain: adequately controlled Airway Patency, RR, SpO2: stable & adequate BP & HR: stable & adequate Hydration State: stable & adequate Neuraxial Anesthesia: was administered and sensory block is resolving Anesthetic Complications: no major complications apparent and Pt Satisfied with anesthetic care
[2019-04-19] MEDS: KETOROLAC 30 MG/ML VIAL IV PRN (19:14)
[2019-04-19] MEDS ORDERED: OXYTOCIN 20 UNITS in LACTATED RINGER'S 1,000 ML IV SCH (20:30)
[2019-04-19] MEDS: DOCUSATE SODIUM 100 MG CAP PO SCH (20:46)
[2019-04-19] MEDS: SIMETHICONE 80 MG CHEW PO SCH (22:07)
--- NOTE | 2019-04-19 22:59 | History and Physical Report ---
DATE OF ADMISSION: 04/19/2019 HISTORY OF PRESENT ILLNESS: The patient is a 28-year-old G1, P0, due date 04/07/2019 making her 41 weeks and 5 days, who presented to labor and delivery around 5:00 a.m. this morning. The patient had been laboring at home with a rail layer and a cyber crime investigator. She had presented to labor since Saturday narratively and the patient has no shortness of breath, no chills, no fever. heart rate was category 1. Exam by me showed she was 10 cm, 100% effaced and 0 to +1 station. She was admitted. Labs were done. She was very uncomfortable. I was able to encourage the patient to get epidural analgesia. course has been patchy. The patient was seen in the office on 04/15/2019. Prior to that, she had indeed been seen for several weeks. At that appointment, she was offered induction of labor, which she declined. LABS: Blood type is A positive, antibody negative, GBS negative. PAST MEDICAL HISTORY: No history of diabetes, hypertension or asthma. PAST SURGICAL HISTORY: History of tonsillectomy. SOCIAL HISTORY: The patient denies tobacco, drug or alcohol use. FAMILY HISTORY: Noncontributory. PHYSICAL EXAMINATION: GENERAL: Well-developed, well-nourished white female in no acute distress. The patient is severely uncomfortable from labor pains. HEART: Heart rate, the patient is tachycardic. The patient is sent to PCU and evaluated, tracing showed sinus tachycardia. ABDOMEN: Gravid. EXTREMITIES: No cyanosis, clubbing or edema. PELVIC: 10 cm, 100% effaced and +1 station. Estimated weight by Mookie[employer] is about 10 pounds. ASSESSMENT AND PLAN: A 28-year-old G1, P0 at 41 weeks and 5 days, has been laboring at home, presented to labor and delivery fully dilated with a tableau report developer. heart tracing is stable. The patient is admitted and given epidural. We will reassess the patient.
[2019-04-20] MEDS: KETOROLAC 30 MG/ML VIAL IV PRN ×2 (02:37→08:49)
[2019-04-20 06:37] LABS: Hematocrit (blood only) 28.3 % (37-47); Hemoglobin 9.3 g/dL (12.0-16.0); Mean Corpuscular Hemoglobin 30.8 pg (25-34); Mean Corpuscular Hgb Conc 32.9 g/dL (32-36); Mean Corpuscular Volume 93.7 fL (80-100); Mean Platelet Volume 12.4 fL (7.4-10.4); Platelet Count 104 K/uL (130-400); RDW Coefficient of Variation 14.2 % (11.5-14.5); RDW Standard Deviation 48.6 fL (36.4-46.3); Red Blood Count 3.02 M/uL (4.2-5.4); White Blood Count 12.87 K/uL (4.8-10.8)
[2019-04-20 06:58] LABS: Basophils # (auto) 0.02 K/uL (0-0.2); Basophils % (auto) 0.2 %; Eosinophils # (auto) 0.08 K/uL (0-0.5); Eosinophils % (auto) 0.6 %; Immature Granulocytes # (auto) 0.04 K/uL (0.00-0.02); Immature Granulocytes % (auto) 0.3 %; Lymphocytes # (auto) 1.97 K/uL (1.2-3.4); Lymphocytes % (auto) 15.3 %; Monocytes # (auto) 1.13 K/uL (0.11-0.59); Monocytes % (auto) 8.8 %; Neutrophils # (auto) 9.63 K/uL (1.4-6.5); Neutrophils % (auto) 74.8 %
[2019-04-20] MEDS ORDERED: FERROUS SULFATE 325 MG TAB PO SCH (08:00)
--- NOTE | 2019-04-20 08:00 | Operative Report ---
DATE OF OPERATION: 04/19/2019 INDICATION FOR PROCEDURE: This is a 28-year-old G3, P0 at 41 weeks and 5 days with failure to descend. The patient had been fully dilated for over 11 hours. The patient has declined intervention at this point. The patient tried laboring at home with a clip loading machine feeder and a an employee sponsor or advocate and. She has finally agreed to undergo section. Risks, alternatives, and benefits of surgery discussed with patient. PREOPERATIVE DIAGNOSES: 1. at 41 and 5 weeks. 2. Failure to descend. 3. Prolonged second stage of labor. POSTOPERATIVE DIAGNOSES: 1. at 41 and 5 weeks. 2. Failure to descend. 3. Prolonged second stage of labor. PROCEDURE: Primary section. SURGEON: Yair Perrin MD METAL BUGGY OPERATOR: Dr. Back. ANESTHESIA: Epidural. ESTIMATED BLOOD LOSS: 700 mL. INTRAVENOUS FLUIDS: 1600 mL. URINE OUTPUT: 150 mL clear urine at the end of the procedure. FINDINGS: Live in cephalic presentation. Weight and Apgars in the pediatric record. Abdominal and pelvic exam otherwise is unremarkable. COMPLICATIONS: None. DRAINS: Mcelroy catheter. SPECIMEN: The patient has decided to take placenta with her home. Placenta specimen is therefore not available. DESCRIPTION OF PROCEDURE: The patient was taken to the operating room where she was prepped and draped in normal sterile fashion after time-out was called. A Pfannenstiel incision was made with a scalpel and carried down to the fascia. Fascia was incised in the midline and extended laterally on both sides. Fascia was sharply dissected off the rectus abdominus muscles superiorly and inferiorly. Peritoneum was identified and entered sharply. Once inside the abdomen, an Lyle retractor was placed for retraction. Vesicouterine peritoneum was identified and sharply dissected off the lower segment of the uterus. Transverse incision was made on the lower segment of the uterus and extended laterally with Fung scissors. 's head was delivered. There was no nuchal cord. There was, however, thick meconium. was delivered. Cord was clamped and cut and handed over to the waiting pediatric team. Details of is in the pediatric record. Placenta was manually removed. Uterus was exteriorized and cleared of all clots and debris. Uterus was closed in 2 layers using Vicryl stitch. There was good hemostasis post repair. The vesicouterine peritoneum was reapproximated using plain suture. Copious amount of irrigation was used to irrigate the abdomen. Uterus was returned to the abdominal cavity. Peritoneum was reapproximated using plain suture after the Lyle retractor was removed. Two [id number] sutures were used to reapproximate the rectus abdominus muscle. Fascia was closed in a running fashion using Vicryl stitch. SubQ space was closed with plain suture and skin was closed with 4-0 Monocryl. All instruments were removed from the abdomen and accounted for x2 including sponges, needles, and retractors. The patient was sent to recovery in stable condition. I attest to the content of the Intraoperative Record and any orders documented therein. Any exception s are noted below.
--- NOTE | 2019-04-20 08:45 | Obstetrical Progress Note ---
Date of Service April 20, 2019 Subjective Patient is seen and examined. She feels well, no complaints. Pain is under control with oral meds. Not OOB yet Tolerating clear diet with out N&V Flatus neg BM neg Bleeding is minimal No fever/ chills/ CP/ SOB/dizziness N&V/ Leg pain Breast feeding without problems Vital Signs Temp Pulse Resp BP Pulse Ox Pulse Ox 04/20/19 07:40 37.2 C 106 H 18 100/67 97 97 04/20/19 06:20 16 97 04/20/19 05:00 16 96 04/20/19 04:30 18 98 04/20/19 04:00 37.0 C 91 H 16 94/59 L 97 04/20/19 03:30 16 96 04/20/19 02:30 16 94 04/20/19 01:30 18 96 04/20/19 00:30 16 95 04/19/19 23:50 36.7 C 93 H 20 97/68 L 96 04/19/19 22:00 20 97 04/19/19 21:30 20 97 04/19/19 20:50 36.7 C 105 H 18 107/69 96 96 Intake & Output 04/19/19 04/20/19 04/20/19 22:59 06:59 14:59 Intake Total 1999 / 4277 1352 / 4277 Output Total 1725 / 4325 500 / 4325 Balance 275 / -48 852 / -48 Weight 99.79 kg Intake: IV 1002 / 1927 Pitocin 20 Units In Lr 1,000 ml 1002 / 1002 @ 125 mls/hr IV .Q8H1M [facility] Rx# :[id number] IV Perioperative 1700 / 1700 Oral 300 / 650 350 / 650 Output: Urine Amount (Catheter) 1725 / 4325 500 / 4325 Mcelroy/Indwelling 1725 / 2225 500 / 2225 Lab Results 04/19/19 04/19/19 04/19/19 Range/Units 05:48 05:48 05:48 WBC 17.32 H (4.8-10.8) K/uL RBC 4.04 L (4.2-5.4) M/uL Hgb 12.4 (12.0-16.0) g/dL Hct 36.6 L (37-47) % MCV 90.6 (80-100) fL MCH 30.7 (25-34) pg MCHC 33.9 (32-36) g/dL RDW Std Deviation 45.1 (36.4-46.3) fL RDW Coeff of Brittany 13.7 (11.5-14.5) % Plt Count 142 (130-400) K/uL MPV 13.6 H (7.4-10.4) fL Immature Gran % (Auto) % Neut % (Auto) % Lymph % (Auto) % Stafford % (Auto) % Eos % (Auto) % Baso % (Auto) % Immature Gran # (Auto) (0.00-0.02) K/uL Neut # (Auto) (1.4-6.5) K/uL Lymph # (Auto) (1.2-3.4) K/uL Stafford # (Auto) (0.11-0.59) K/uL Eos # (Auto) (0-0.5) K/uL Baso # (Auto) (0-0.2) K/uL Platelet Estimate Normal (Normal) Cord ABG pH (7.1-7.38) Cord ABG pCO2 (39.1-73.5) mmHg Cord ABG pO2 (4.1-31.7) % Cord ABG HCO3 (19.7-28.5) mmol/L Cord ABG Base Excess (-9-1.8) mEq/L Cord ABG O2 Sat (<60) % Cord VBG pH (7.20-7.44) Cord VBG pCO2 (30.4-57.2) mmHg Cord VBG pO2 (14.1-43.3) mmHg Cord VBG HCO3 (18.4-26.8) mmol/L Cord VBG Base Excess (-7.7-1.9) mEq/L Cord VBG O2 Sat (<68) % Barometric Pressure mm/Hg Blood Gas Comments Sodium (136-145) mmol/L Potassium (3.5-5.1) mmol/L Chloride (98-107) mmol/L Carbon Dioxide (21-32) mmol/L Anion Gap (3-11) BUN (7-18) mg/dl Creatinine (0.6-1.2) mg/dl Est Cr Clr Drug Dosing ml/min Est GFR ( Amer) Est GFR (Non-Af Amer) BUN/Creatinine Ratio (10-20) Glucose (70-99) mg/dl Calcium (8.5-10.1) mg/dl Total Bilirubin (0.2-1) mg/dl AST (15-37) U/L ALT (12-78) U/L Alkaline Phosphatase (45-117) U/L Total Protein (6.4-8.2) gm/dl Albumin (3.4-5.0) gm/dl Globulin (2.5-4.0) gm/dl Albumin/Globulin Ratio (0.9-2) Hep Bs Antigen Neg (Neg) Hepatitis C Antibody Neg (Neg) HIV 1&2 Ab/P24 Ag 4thGn Neg (Neg) Rubella IgG Antibody Equivocal L (Immune) 04/19/19 04/19/19 04/19/19 Range/Units 16:44 16:44 17:25 WBC 14.86 H (4.8-10.8) K/uL RBC 3.85 L (4.2-5.4) M/uL Hgb 11.7 L (12.0-16.0) g/dL Hct 34.9 L (37-47) % MCV 90.6 (80-100) fL MCH 30.4 (25-34) pg MCHC 33.5 (32-36) g/dL RDW Std Deviation 45.9 (36.4-46.3) fL RDW Coeff of Brittany 14.0 (11.5-14.5) % Plt Count 126 L (130-400) K/uL MPV 13.0 H (7.4-10.4) fL Immature Gran % (Auto) 0.3 % Neut % (Auto) 84.0 % Lymph % (Auto) 8.1 % Stafford % (Auto) 7.5 % Eos % (Auto) 0.1 % Baso % (Auto) 0.0 % Immature Gran # (Auto) 0.04 H (0.00-0.02) K/uL Neut # (Auto) 12.49 H (1.4-6.5) K/uL Lymph # (Auto) 1.21 (1.2-3.4) K/uL Stafford # (Auto) 1.11 H (0.11-0.59) K/uL Eos # (Auto) 0.01 (0-0.5) K/uL Baso # (Auto) 0.00 (0-0.2) K/uL Platelet Estimate Normal (Normal) Cord ABG pH 7.27 (7.1-7.38) Cord ABG pCO2 61 (39.1-73.5) mmHg Cord ABG pO2 12.5 (4.1-31.7) % Cord ABG HCO3 27 (19.7-28.5) mmol/L Cord ABG Base Excess -1.3 (-9-1.8) mEq/L Cord ABG O2 Sat < 60.0 (<60) % Cord VBG pH (7.20-7.44) Cord VBG pCO2 (30.4-57.2) mmHg Cord VBG pO2 (14.1-43.3) mmHg Cord VBG HCO3 (18.4-26.8) mmol/L Cord VBG Base Excess (-7.7-1.9) mEq/L Cord VBG O2 Sat (<68) % Barometric Pressure 738.7 mm/Hg Blood Gas Comments VÁZQUEZ Sodium 136 (136-145) mmol/L Potassium 3.9 (3.5-5.1) mmol/L Chloride 104 (98-107) mmol/L Carbon Dioxide 23 (21-32) mmol/L Anion Gap 9.0 (3-11) BUN 6 L (7-18) mg/dl Creatinine 0.74 (0.6-1.2) mg/dl Est Cr Clr Drug Dosing 141.0 ml/min Est GFR ( Amer) 126.9 Est GFR (Non-Af Amer) 109.5 BUN/Creatinine Ratio 8.6 L (10-20) Glucose 106 H (70-99) mg/dl Calcium 8.8 (8.5-10.1) mg/dl Total Bilirubin 1.4 H (0.2-1) mg/dl AST 19 (15-37) U/L ALT 20 (12-78) U/L Alkaline Phosphatase 183 H (45-117) U/L Total Protein 6.7 (6.4-8.2) gm/dl Albumin 2.6 L (3.4-5.0) gm/dl Globulin 4.1 H (2.5-4.0) gm/dl Albumin/Globulin Ratio 0.6 L (0.9-2) Hep Bs Antigen (Neg) Hepatitis C Antibody (Neg) HIV 1&2 Ab/P24 Ag 4thGn (Neg) Rubella IgG Antibody (Immune) 04/19/19 04/20/19 Range/Units 17:25 06:23 WBC 12.87 H (4.8-10.8) K/uL RBC 3.02 L (4.2-5.4) M/uL Hgb 9.3 L (12.0-16.0) g/dL Hct 28.3 L (37-47) % MCV 93.7 (80-100) fL MCH 30.8 (25-34) pg MCHC 32.9 (32-36) g/dL RDW Std Deviation 48.6 H (36.4-46.3) fL RDW Coeff of Brittany 14.2 (11.5-14.5) % Plt Count 104 L (130-400) K/uL MPV 12.4 H (7.4-10.4) fL Immature Gran % (Auto) 0.3 % Neut % (Auto) 74.8 % Lymph % (Auto) 15.3 % Stafford % (Auto) 8.8 % Eos % (Auto) 0.6 % Baso % (Auto) 0.2 % Immature Gran # (Auto) 0.04 H (0.00-0.02) K/uL Neut # (Auto) 9.63 H (1.4-6.5) K/uL Lymph # (Auto) 1.97 (1.2-3.4) K/uL Stafford # (Auto) 1.13 H (0.11-0.59) K/uL Eos # (Auto) 0.08 (0-0.5) K/uL Baso # (Auto) 0.02 (0-0.2) K/uL Platelet Estimate (Normal) Cord ABG pH (7.1-7.38) Cord ABG pCO2 (39.1-73.5) mmHg Cord ABG pO2 (4.1-31.7) % Cord ABG HCO3 (19.7-28.5) mmol/L Cord ABG Base Excess (-9-1.8) mEq/L Cord ABG O2 Sat (<60) % Cord VBG pH 7.36 (7.20-7.44) Cord VBG pCO2 45 (30.4-57.2) mmHg Cord VBG pO2 26 (14.1-43.3) mmHg Cord VBG HCO3 25 (18.4-26.8) mmol/L Cord VBG Base Excess -0.7 (-7.7-1.9) mEq/L Cord VBG O2 Sat 61.0 (<68) % Barometric Pressure 738.2 mm/Hg Blood Gas Comments VÁZQUEZ Sodium (136-145) mmol/L Potassium (3.5-5.1) mmol/L Chloride (98-107) mmol/L Carbon Dioxide (21-32) mmol/L Anion Gap (3-11) BUN (7-18) mg/dl Creatinine (0.6-1.2) mg/dl Est Cr Clr Drug Dosing ml/min Est GFR ( Amer) Est GFR (Non-Af Amer) BUN/Creatinine Ratio (10-20) Glucose (70-99) mg/dl Calcium (8.5-10.1) mg/dl Total Bilirubin (0.2-1) mg/dl AST (15-37) U/L ALT (12-78) U/L Alkaline Phosphatase (45-117) U/L Total Protein (6.4-8.2) gm/dl Albumin (3.4-5.0) gm/dl Globulin (2.5-4.0) gm/dl Albumin/Globulin Ratio (0.9-2) Hep Bs Antigen (Neg) Hepatitis C Antibody (Neg) HIV 1&2 Ab/P24 Ag 4thGn (Neg) Rubella IgG Antibody (Immune) PE: General: Alert, orientedx3, NAD CVS: S1S2 RRR Lungs; CTAB Abd: soft, NT, ND, BS+, fundus firm, below Umbilicus Dressing: Clean, dry, intact Perineum intact, Lochia rubra minimal Ext; NT, no edema, SCD's on AP: 28 yo s/p C Section, pod# 1 VSS Afebrile doing well Continue routine postop care Iron bid Encourage ambulation, PO intake All questions were answered Results & Data Vital Signs (Past 12 Hours) Vital Signs Temp Pulse Resp BP Pulse Ox Pulse Ox 04/20/19 07:40 37.2 C 106 H 18 100/67 97 97 04/20/19 06:20 16 97 04/20/19 05:00 16 96 04/20/19 04:30 18 98 04/20/19 04:00 37.0 C 91 H 16 94/59 L 97 04/20/19 03:30 16 96 04/20/19 02:30 16 94 04/20/19 01:30 18 96 04/20/19 00:30 16 95 04/19/19 23:50 36.7 C 93 H 20 97/68 L 96 04/19/19 22:00 20 97 04/19/19 21:30 20 97 04/19/19 20:50 36.7 C 105 H 18 107/69 96 96
[2019-04-20] MEDS: PRENATAL VITAMIN 1 TAB PO SCH (08:47)
[2019-04-20] MEDS: DOCUSATE SODIUM 100 MG CAP PO SCH ×2 (08:47→20:48)
[2019-04-20] MEDS: SIMETHICONE 80 MG CHEW PO SCH ×4 (08:47→20:48)
[2019-04-20] MEDS: FERROUS SULFATE 325 MG TAB PO SCH (08:49)
[2019-04-20] MEDS ORDERED: DiphenhydrAMINE HCL 50 MG/ML VIAL IV PRN (12:44)
[2019-04-20] MEDS ORDERED: PROMETHAZINE HCL 25 MG in SODIUM CHLORIDE 0.9% 50 ML IV PRN (12:45)
[2019-04-20] MEDS ORDERED: ZOLPIDEM TARTRATE 5 MG TAB PO PRN (12:46)
[2019-04-20] MEDS ORDERED: ONDANSETRON INJ 2 MG/ML 2 ML VIAL IV PRN (12:46)
[2019-04-20] MEDS: IBUPROFEN 600 MG TAB PO PRN ×3 (13:09→21:19)
[2019-04-20] MEDS: OXYCODONE/ACETAMINOPHEN 5mg/325mg TAB PO PRN ×3 (13:10→21:17)
[2019-04-20 15:35] VITALS: O2SAT 96
[2019-04-20] MEDS ORDERED: bisacodyL 5 MG TABEC PO SCH (20:00)
[2019-04-21] MEDS: IBUPROFEN 600 MG TAB PO PRN ×4 (00:45→14:14)
[2019-04-21] MEDS: OXYCODONE/ACETAMINOPHEN 5mg/325mg TAB PO PRN ×4 (00:46→14:14)
[2019-04-21 06:38] LABS: Hemoglobin 9.2 g/dL (12.0-16.0)
--- NOTE | 2019-04-21 09:58 | Obstetrical Progress Note ---
Date of Service April 21, 2019 Assessment & Plan (1) delivery delivered: POD #2 pt doing well pt wants to be discharged home d/c home with instructions Subjective Ambulation: ambulating normally Voiding: no voiding problems Passing Gas:: Yes Diet Tolerance:: clear liquids Lochia:: Small Feeding Type:: breast feeding Review of Systems All systems reviewed & are unremarkable except as noted in HPI & below Physical Exam Constitutional WD/WN, vitals as above well developed and well nourished Eyes PERRL, conjunctivae normal, anicteric sclerae ENMT external ear and nose normal, oropharynx normal Neck trachea midline, no thyromegaly Respiratory normal respiratory effort, lungs clear to auscultation Cardiovascular RRR, no murmur, no edema Chest (Breasts) normal inspection/palpation of breasts Gastrointestinal (Abdomen) normal bowel sounds, soft, nontender, no hepatosplenomegaly Musculoskeletal no cyanosis or clubbing, extremities motor strength 5/5 Skin no rashes, warm and dry + incision (Clean,dry and intact) Neurologic patellar DTR's 2+ bilat, sensation intact Psychiatric A+Ox3, euthymic affect Genitourinary normal external appearance Lymphatic no cervical or axillary lymphadenopathy Results & Data Vital Signs (Past 12 Hours) Vital Signs Temp Pulse Resp BP 04/21/19 01:00 36.8 C 85 18 96/62 L
[2019-04-21] MEDS: FERROUS SULFATE 325 MG TAB PO SCH (10:10)
[2019-04-21] MEDS: DOCUSATE SODIUM 100 MG CAP PO SCH (10:10)
[2019-04-21] MEDS: PRENATAL VITAMIN 1 TAB PO SCH (10:10)
[2019-04-21 11:00] VITALS: BP 101/65; PULSE 81; TEMP 97.7
[2019-04-21] MEDS: SIMETHICONE 80 MG CHEW PO SCH (14:15)
[2019-04-21] MEDS ORDERED: bisacodyL 10 MG SUPP PR PRN (18:23)
--- NOTE | 2019-04-21 21:47 | Discharge Summary ---
CHIEF COMPLAINT: Failed attempted home delivery. HISTORY OF PRESENT ILLNESS: This is a 28-year-old G3, P0 who presented to labor and delivery on 04/19/2019 after a failed home attempted delivery with home registered midwife. On arrival at labor and delivery, she had been ruptured and fully dilated. The patient went on to deliver a live female on 04/19/2019. Details of delivery, see in the delivery records. Delivery was via section. Details of surgery is in the surgical record as well. The patient has done well since surgery. Today on 04/21/2019, postop day 2, the patient wishes to be discharged home. The usual recommendation to patient is that she stay until 04/22/2019; patient, however, has declined to stay. Pediatrics has asked the patient to stay this day as well because of her baby's bilirubin. She also declined that as well. She and her baby therefore have been discharged. PAST MEDICAL HISTORY: History of PID, back pain, and abnormal Paps. PAST SURGICAL HISTORY: History of adenoidectomy. FAMILY HISTORY: Noncontributory. SOCIAL HISTORY: Denies tobacco, drug, or alcohol use. ALLERGIES: No known drug allergies. REVIEW OF SYSTEMS: Negative except as dictated in the HPI. PHYSICAL EXAMINATION: VITAL SIGNS: Today blood pressure is 96/62, pulse is 85, respirations 18, temperature is 36.8. GENERAL: Well-developed, well-nourished, white female in no acute distress. HEART: S1, S2, regular rhythm and rate. LUNGS: Clear to auscultation bilaterally. ABDOMEN: Nontender, nondistended, positive bowel sounds. Incision is clean, dry, and intact. LABORATORY DATA: Hemoglobin is 9.2, hematocrit is 28.0. CONDITION ON DISCHARGE: Stable. OPERATION: section. DISCHARGE DIAGNOSIS: Postoperative section. PLAN ON DISCHARGE: The patient is discharged home with instructions regarding activity, diet, followup appointment, and medications.
== END 2019-04-21 14:35 | disposition home or self-care (01) | DRG 788 ==
LOC: OPB 05:20 → 4S1 05:23 → 4S2 20:45

== ENCOUNTER 2021-01-03 05:42 | Inpatient (IN) ==
--- NOTE | 2020-12-28 13:29 | Anesthesiology Consultation ---
Date of Service December 28, 2020 Assessment & Plan (1) Encounter for pre-operative examination: Chart Review Chart Review: entry level project coordinator initiated Per nursing assessment 12/28/2020, pt resides in [facility]. Travels to [facility] visit with grandmother. He uses mask. No large gatherings. No known Covid infection in the past 90 days. No known Covid positive contacts or Covid related symptoms. Preop Covid testing scheduled 12/31/20= will await results History Surgery Operation Date: 01/03/21 07:30 Proposed Procedures p Repeat Section in LD - Yair Perrin MD Height/Weight Height: 5 ft 9 in Weight: 94.801 kg Allergies Allergy/AdvReac Type Severity Reaction Status Date / Time No Known Allergies Allergy Verified 12/28/20 13:06 Medications Home Medications Medication Instructions Recorded Confirmed Last Taken PNV cmb#95-ferrous fumarate-FA 1 tab PO DAILY 04/19/19 12/28/20 04/17/19 20:00 [] Past Medical History Medical History Hx of abnormal cervical Papanicolaou smear 2010-[facility];+hpv, colpo lgsil 2014-[facility] pos hr hpv 2018-lgsil, colpo with cin2, leep suggested-declined by patient Past Family History Family History Other Family history of diabetes mellitus Past Surgical History Surgical History History of termination of 2016 Hx of adenoidectomy as a child Hx of section Social History Smoking Status: Never smoker Do You Dip or Chew Tobacco: No Hx Alcohol Use: No Hx Substance Use: No substance use type: does not use
[2021-01-03] MEDS ORDERED: LACTATED RINGER'S 1,000 ML IV SCH ×2 (05:45→06:00)
[2021-01-03] MEDS ORDERED: ceFAZolin 2000MG 2,000 MG/15 ML SYR IV STA (05:58)
[2021-01-03] MEDS ORDERED: CITRIC ACID/SODIUM CITRATE 15 ML UDC PO SCH (06:00)
[2021-01-03] MEDS ORDERED: OXYTOCIN 10 UNITS/ML VIAL ONE ×2 (06:43→08:23)
[2021-01-03] MEDS ORDERED: MoRPHine SULFATE PF 1 MG/ML 10 ML AMP/VIAL ONE (06:43)
[2021-01-03] MEDS ORDERED: ONDANSETRON INJ 2 MG/ML 2 ML VIAL ONE (06:43)
[2021-01-03] MEDS ORDERED: fentaNYL citrate 100 MCG/2 ML VIAL ONE (06:43)
[2021-01-03] MEDS ORDERED: SODIUM CHLORIDE 0.9% INJ 10 ML VIAL ONE (06:45)
[2021-01-03 06:46] LABS: Hematocrit (blood only) 37.2 % (37-47); Hemoglobin 12.7 g/dL (12.0-16.0); Mean Corpuscular Hemoglobin 30.6 pg (25-34); Mean Corpuscular Hgb Conc 34.1 g/dL (32-36); Mean Corpuscular Volume 89.6 fL (80-100); Platelet Count 103 K/uL (130-400); RDW Coefficient of Variation 13.7 % (11.5-14.5); RDW Standard Deviation 44.9 fL (36.4-46.3); Red Blood Count 4.15 M/uL (4.2-5.4); White Blood Count 7.33 K/uL (4.8-10.8)
[2021-01-03 06:48] LABS: Basophils # (auto) 0.01 K/uL (0-0.2); Basophils % (auto) 0.1 %; Eosinophils # (auto) 0.08 K/uL (0-0.5); Eosinophils % (auto) 1.1 %; Giant Platelets 3+; Immature Granulocytes # (auto) 0.02 K/uL (0.00-0.02); Immature Granulocytes % (auto) 0.3 %; Lymphocytes # (auto) 2.61 K/uL (1.2-3.4); Lymphocytes % (auto) 35.6 %; Monocytes # (auto) 0.54 K/uL (0.11-0.59); Monocytes % (auto) 7.4 %; Neutrophils # (auto) 4.07 K/uL (1.4-6.5); Neutrophils % (auto) 55.5 %; Platelet Estimate Decreased (Normal)
--- NOTE | 2021-01-03 06:57 | History & Physical Bridge Note ---
Date of Service January 03, 2021 History & Physical Bridge Note I have examined the patient, reviewed the History & Physical and in the interval since the performance of the History & Physical I have noted the following changes of clinical significance: no changes noted
[2021-01-03] MEDS ORDERED: ONDANSETRON INJ 2 MG/ML 2 ML VIAL IV PRN ×2 (08:15→09:38)
[2021-01-03] MEDS ORDERED: MoRPHine SULFATE PF 1 MG/ML 10 ML AMP/VIAL INT SPINAL ONE (08:15)
[2021-01-03] MEDS ORDERED: NALOXONE HCL 0.4 MG/1 ML VIAL/CARP IV PRN (08:15)
[2021-01-03] MEDS ORDERED: SODIUM CHLORIDE 0.9% 1000ML 1,000 ML IV SCH (08:15)
[2021-01-03] MEDS ORDERED: ACETAMINOPHEN 1000 MG/100 ML IV IV PRN (08:15)
[2021-01-03] MEDS ORDERED: NALOXONE HCL 0.08 MG in SYRINGE 1.8 ML IV PRN (08:15)
[2021-01-03] MEDS ORDERED: diphenhydrAMINE 50 MG/ML VIAL IV PRN ×2 (08:15→09:38)
[2021-01-03] MEDS ORDERED: LACTATED RINGER'S 500 ML IV PRN (08:15)
[2021-01-03] MEDS ORDERED: NALOXONE HCL 1 MG in SODIUM CHLORIDE 0.9% 1000ML 1,000 ML IV PRN (08:15)
[2021-01-03] MEDS ORDERED: NO NARCOTICS OR SEDATIVES SCH (08:15)
[2021-01-03] MEDS ORDERED: ePHEDrine sulfate 50 MG/ML AMP IV PRN (08:15)
[2021-01-03] MEDS ORDERED: OXYTOCIN 10 UNITS/ML VIAL IM ONE (08:31)
[2021-01-03] MEDS ORDERED: PHENYLEPHRINE 100MCG/ML 5ML SYR ONE (08:59)
[2021-01-03] MEDS ORDERED: METHYLERGONOVINE MALEATE 0.2 MG/ML AMP ONE (08:59)
[2021-01-03] MEDS ORDERED: miSOPROStoL 100 MCG TAB ONE (09:01)
[2021-01-03] MEDS ORDERED: miSOPROStoL 100 MCG TAB PR ONE (09:03)
--- NOTE | 2021-01-03 09:37 | Anesthesiology Progress Note ---
Date of Service January 03, 2021 Anesthesia Post Procedure Vital Signs Vital Signs: Temp Pulse Resp BP Pulse Ox 01/03/21 09:30 78 98 01/03/21 09:25 80 109/68 95 01/03/21 09:24 81 93 01/03/21 09:20 75 97 01/03/21 09:16 71 107/57 L 93 01/03/21 09:15 83 98 01/03/21 07:27 37 C 18 01/03/21 07:18 90 131/86 01/03/21 05:51 36.8 C 20 01/03/21 05:48 100 H 120/82 Transfer of Care Handoff Completed per policy Notes Mental Status: alert / awake / arousable and participated in evaluation Nausea / Vomiting: adequately controlled Pain: adequately controlled Airway Patency, RR, SpO2: stable & adequate BP & HR: stable & adequate Hydration State: stable & adequate Neuraxial Anesthesia: was administered and sensory block is resolving Anesthetic Complications: no major complications apparent and Pt Satisfied with anesthetic care
[2021-01-03] MEDS ORDERED: SUPERCREAM 0.870% 15 GM JAR EXT PRN (09:38)
[2021-01-03] MEDS ORDERED: DIPHTHERIA/TETANUS/PERTUSSIS 0.5 ML SYR/VIAL IM ONE (09:38)
[2021-01-03] MEDS ORDERED: BENZOCAINE 20% AER SPR 82.5 GM CAN EXT PRN (09:38)
[2021-01-03] MEDS ORDERED: PROMETHAZINE HCL 25 MG in SODIUM CHLORIDE 0.9% 50 ML IV PRN (09:38)
[2021-01-03] MEDS ORDERED: MAGNESIUM HYDROXIDE SUSP 30 ML UDC PO PRN (09:38)
[2021-01-03] MEDS ORDERED: diphenhydrAMINE Capsule 25 MG CAP PO PRN (09:38)
[2021-01-03] MEDS ORDERED: HYDROCORTISONE ACETATE 25 MG SUPP PR PRN (09:38)
[2021-01-03] MEDS ORDERED: SENNA 8.6 MG TAB PO PRN (09:38)
--- NOTE | 2021-01-03 09:43 | Post Operative Brief Note ---
Immediate Post Op Note v1 Date of Surgery January 03, 2021 Pre & Post Diagnosis Operation Date: 01/03/21 07:30 Pre-Op Diagnosis: 1. Term Previous 2. Declines Post-Op Diagnosis: Same I identified the patient and participated in the time-out.: Yes Procedure Operation Date: 01/03/21 07:30 Actual Procedures p Section in LD; Repeat Lower Uterine Transverse Section for the of a live boy infant at 0822 in OR #3(Bilateral) - Yair Perrin MD Surgeon Yair Perrin MD Bin Tripper Operator dr vines Estimated Blood Loss 750 Findings Consistent with Post-Op Diagnosis Drains Mcelroy Catheter (Mcelroy inserted without difficulty by Shy Medellin RN. Patent and draining clear yellow urine. )
[2021-01-03] MEDS: HYDROmorphone INJ 0.5 MG/0.5 ML SYR IV PRN ×3 (10:23→21:03)
[2021-01-03] MEDS: OXYTOCIN 20 UNITS in LACTATED RINGER'S 1,000 ML IV SCH ×2 (10:28→19:29)
[2021-01-03] MEDS: KETOROLAC 30 MG/ML VIAL IV PRN ×2 (11:55→19:29)
--- NOTE | 2021-01-03 12:13 | Operative Report (OR) ---
DATE OF PROCEDURE: 01/03/2021 INDICATIONS: This is a 30-year-old , at term, previous section, wishes to hav e repeat . PREOPERATIVE DIAGNOSES: 1. at term. 2. Prior section, wishes to have repeat section. POSTOPERATIVE DIAGNOSES: 1. at term. 2. Prior section, wishes to have repeat section. SURGEON: Yair Perrin MD. PRODUCTION STATISTICAL CLERK: Remy Back MD. ANESTHESIA: Spinal. ESTIMATED BLOOD LOSS: 750 mL. URINE OUTPUT: 120 mL. INTRAVENOUS FLUIDS: 1300 mL. FINDINGS: Live infant in cephalic presentation, weight and Apgars in the pediatric record. No signi ficant abdominopelvic adhesions. Uterus and adnexa appeared grossly normal. SPECIMEN: Cord blood. The patient opted to take placenta home. COMPLICATIONS: None. DRAINS: Mcelroy catheter. DISPOSITION: Stable to recovery room. DESCRIPTION OF PROCEDURE: The patient was taken to the operating room where she was prepped and madhav ped in normal sterile fashion in dorsal position. Time-out was called. A scalpel was used to remove the patient's old section scar. A Pfannenstiel incision was made and carried down to the f ascia. Fascia was incised in the midline and extended laterally on both sides. Rectus abdominis mus tatiana was identified. Peritoneum was identified and entered sharply. This was done after the fascia w as dissected superiorly and inferiorly. Once inside the abdomen, an Lyle retractor was placed for retraction. Findings of the abdomen were as dictated above. The bladder was dissected off the lower uterine segment. A transverse incision was made on the uterus with a scalpel and extended laterally on both sides. Infant was delivered, mouth was suctioned, cord was clamped and cut, handed over to the waiting pediatric team. Details of the is in the pediatric record. Placenta is manually removed. Uterus was exteriorized and cleared of all clot and debris. Uterus wa s closed in 2 layers using Vicryl stitch. There was good hemostasis. Copious amount of irrigation w as used to irrigate the abdomen. Uterus was returned into the abdominal cavity. As stated above, bot h adnexa appeared grossly normal. Peritoneum was closed with a plain suture. Fascia was closed with Vicryl stitch in running fashion. Subcutaneous space was irrigated and a plain suture was used to c lose the subcutaneous space. Skin was closed with abby. All instruments were removed from the abdomen including sponges, needles and retractors. The patient is sent to recovery in stable condition. Job ID: [id number]
[2021-01-03] MEDS: SIMETHICONE 80 MG CHEW PO SCH (21:20)
[2021-01-03] MEDS: DOCUSATE SODIUM 100 MG CAP PO SCH (21:20)
[2021-01-04] MEDS ORDERED: DC INTRASPINAL MORPHINE SCH (02:18)
[2021-01-04] MEDS: oxyCODONE/ACETAMINOPHEN 5mg/325mg TAB PO PRN ×5 (02:50→20:07)
[2021-01-04] MEDS: IBUPROFEN 600 MG TAB PO PRN ×5 (02:51→20:06)
[2021-01-04 06:55] LABS: Mean Corpuscular Hgb Conc 33.9 g/dL (32-36)
[2021-01-04 07:15] LABS: Hemoglobin 11.2 g/dL (12.0-16.0); Mean Corpuscular Hemoglobin 30.5 pg (25-34); Mean Corpuscular Volume 89.9 fL (80-100); RDW Coefficient of Variation 13.6 % (11.5-14.5); RDW Standard Deviation 44.9 fL (36.4-46.3); Red Blood Count 3.67 M/uL (4.2-5.4); White Blood Count 11.21 K/uL (4.8-10.8)
[2021-01-04 07:29] LABS: Platelet Count 95 K/uL (130-400)
[2021-01-04 07:30] LABS: Giant Platelets 1+; Platelet Estimate Decreased (Normal)
[2021-01-04] MEDS: FERROUS SULFATE 325 MG TAB PO SCH (07:41)
[2021-01-04] MEDS: SIMETHICONE 80 MG CHEW PO SCH ×4 (07:42→20:06)
[2021-01-04] MEDS: DOCUSATE SODIUM 100 MG CAP PO SCH ×2 (07:42→20:06)
[2021-01-04] MEDS: PRENATAL VITAMIN 1 TAB PO SCH (07:42)
--- NOTE | 2021-01-04 08:36 | Obstetrical Progress Note ---
Date of Service January 04, 2021 POD#1 Subjective Ambulation: limited ambulation Voiding: no voiding problems Diet Tolerance:: regular diet Lochia:: Small Feeding Type:: breast feeding Physical Exam Constitutional WD/WN, vitals as above comfortable abdomen soft and non-tender fundus firm below U incision c/d/i Results & Data ([facility]) Vital Signs (Past 12 Hours) Vital Signs Temp Pulse Resp BP Pulse Ox 01/04/21 07:45 37.1 C 81 18 110/72 95 01/04/21 03:00 36.8 C 83 17 131/88 97 01/04/21 02:15 16 95 01/04/21 01:15 16 97 01/04/21 00:15 16 97 01/03/21 23:50 36.5 C 74 16 114/75 100 01/03/21 23:15 16 99 01/03/21 22:15 16 97 01/03/21 21:35 16 97 01/03/21 20:35 16 98 Laboratory Results Laboratory Results - last 72 hr 01/03/21 01/03/21 01/04/21 06:06 06:06 06:27 WBC 7.33 11.21 H RBC 4.15 L 3.67 L Hgb 12.7 11.2 L Hct 37.2 33.0 L MCV 89.6 89.9 MCH 30.6 30.5 MCHC 34.1 33.9 RDW Std Deviation 44.9 44.9 RDW Coeff of Brittany 13.7 13.6 Plt Count 103 L 95 L Immature Gran % (Auto) 0.3 Neut % (Auto) 55.5 Lymph % (Auto) 35.6 [place] % (Auto) 7.4 Eos % (Auto) 1.1 Baso % (Auto) 0.1 Neut # (Auto) 4.07 Lymph # (Auto) 2.61 [place] # (Auto) 0.54 Eos # (Auto) 0.08 Baso # (Auto) 0.01 Immature Gran # (Auto) 0.02 Platelet Estimate Decreased L Decreased L Giant Platelets 3+ 1+ Blood Type A Positive Antibody Screen NEGATIVE
[2021-01-04] MEDS ORDERED: bisacodyL 5 MG TABEC PO SCH (20:00)
[2021-01-04] MEDS ORDERED: HYDROmorphone INJ 1 MG/ML SYRINGE IV STA (22:06)
[2021-01-05] MEDS: oxyCODONE/ACETAMINOPHEN 5mg/325mg TAB PO PRN ×3 (01:37→12:24)
[2021-01-05] MEDS: IBUPROFEN 600 MG TAB PO PRN ×3 (01:37→12:24)
[2021-01-05 06:46] LABS: Hematocrit (blood only) 30.9 % (37-47); Hemoglobin 10.2 g/dL (12.0-16.0)
[2021-01-05] MEDS ORDERED: bisacodyL 10 MG SUPP PR PRN (09:38)
[2021-01-05] MEDS: PRENATAL VITAMIN 1 TAB PO SCH (09:39)
[2021-01-05] MEDS: DOCUSATE SODIUM 100 MG CAP PO SCH (09:39)
[2021-01-05] MEDS: FERROUS SULFATE 325 MG TAB PO SCH (09:40)
[2021-01-05] MEDS: SIMETHICONE 80 MG CHEW PO SCH ×2 (09:40→12:21)
--- NOTE | 2021-01-05 09:48 | Obstetrical Progress Note ---
Date of Service January 05, 2021 Subjective Ambulation: ambulating normally Voiding: no voiding problems Passing Gas:: Yes Diet Tolerance:: regular diet Lochia:: Small Feeding Type:: breast feeding incision c/d/i abdomen soft and non-tender fundus firm no edema neg Arminda's for d/c today f/u in 1 week Results & Data ([facility]) Vital Signs (Past 12 Hours) Vital Signs Temp Pulse Resp BP Pulse Ox 01/05/21 08:00 36.9 C 89 18 134/91 96 01/04/21 23:25 36.2 C L 83 18 123/84 96 Laboratory Results 01/03/21 01/03/21 01/04/21 06:06 06:06 06:27 WBC 7.33 11.21 H RBC 4.15 L 3.67 L Hgb 12.7 11.2 L Hct 37.2 33.0 L MCV 89.6 89.9 MCH 30.6 30.5 MCHC 34.1 33.9 RDW Std Deviation 44.9 44.9 RDW Coeff of Brittany 13.7 13.6 Plt Count 103 L 95 L Immature Gran % (Auto) 0.3 Neut % (Auto) 55.5 Lymph % (Auto) 35.6 [place] % (Auto) 7.4 Eos % (Auto) 1.1 Baso % (Auto) 0.1 Neut # (Auto) 4.07 Lymph # (Auto) 2.61 [place] # (Auto) 0.54 Eos # (Auto) 0.08 Baso # (Auto) 0.01 Immature Gran # (Auto) 0.02 Platelet Estimate Decreased L Decreased L Giant Platelets 3+ 1+ Blood Type A Positive Antibody Screen NEGATIVE 01/05/21 06:29 WBC RBC Hgb 10.2 L Hct 30.9 L MCV MCH MCHC RDW Std Deviation RDW Coeff of Brittany Plt Count Immature Gran % (Auto) Neut % (Auto) Lymph % (Auto) [place] % (Auto) Eos % (Auto) Baso % (Auto) Neut # (Auto) Lymph # (Auto) [place] # (Auto) Eos # (Auto) Baso # (Auto) Immature Gran # (Auto) Platelet Estimate Giant Platelets Blood Type Antibody Screen
--- NOTE | 2021-01-22 00:44 | Discharge Summary (DS) ---
DATE OF ADMISSION: 01/03/2021 DATE OF DISCHARGE: 01/05/2021 HISTORY OF PRESENT ILLNESS: This is a 30-year-old G2, P1, due date 01/05/2021, prior sectio n, who presented to labor and delivery for repeat . The patient underwent repeat s ection to deliver a live infant. Details of the surgery and pediatric information are in the respect eric records. Surgery was otherwise unremarkable. The patient met all milestones for recovery day 1 and day 2 and was discharged home in stable condition on 01/05/2021. PAST MEDICAL HISTORY: History of abnormal Pap smears. No history of diabetes, hypertension, or asth ma. PAST SURGICAL HISTORY: The patient has a history of adenoidectomy and prior section. SOCIAL HISTORY: The patient is and lives with spouse and one child. ALLERGIES: NO KNOWN DRUG ALLERGIES. REVIEW OF SYSTEMS: Negative except as dictated in the HPI. PHYSICAL EXAMINATION: VITAL SIGNS: On 01/05/2021 showed blood pressure 134/91, pulse of 89, respiration of 18, temperature of 36.9. HEART: S1 and S2, regular rhythm and rate. LUNGS: Clear to auscultation bilaterally. ABDOMEN: Nontender, nondistended. Incision was clean, dry and intact at the time of discharge. EXTREMITIES: No cyanosis, clubbing or edema. LABORATORIES: On 01/05/2021 showed hemoglobin of 10.2, hematocrit of 30.9. CONDITION ON DISCHARGE: Stable. OPERATIONS: Repeat section. DISCHARGE DIAGNOSIS: Postoperative section. PLAN ON DISCHARGE: The patient is discharged home with instructions regarding activity, diet, and [facility] appointment and medications. Job ID: [id number]
== END 2021-01-05 15:15 | disposition home or self-care (01) | DRG 788 ==
LOC: ASU 05:42 → 4S1 05:44 → 4S2 11:30